=== PATIENT | female | born 1985 | race Caucasian/White ===

== ENCOUNTER 2024-10-15 08:25 | Inpatient (IN) | payer BC, MEDICAID, OTHER ==
[2024-10-15 11:52] LABS: Amphetamine Screen,Urine Not Detected (NotDetected); Barbiturate Screen,Urine Not Detected (NotDetected); Benzodiazepines Screen,Urine Not Detected (NotDetected); Cocaine Screen,Urine Not Detected (NotDetected); Methadone Screen, Urine Not Detected (NotDetected); Opiate Screen,Urine Not Detected (NotDetected); Oxycodone Screen, Urine Not Detected (NotDetected); Phencyclidine Screen,Urine Not Detected (NotDetected); Tricyclic Antidepressant,Urine Not Detected (NotDetected); Urn Cannabinoid Scrn Detected (NotDetected)
[2024-10-15 12:14] LABS: Influenza A Not Detected (Not Detectd); Influenza B Not Detected (Not Detectd); RSV Not Detected (Not Detectd)
[2024-10-15] MEDS: LORazepam 2 MG/ML INJ IM STA (12:37)
[2024-10-15] MEDS: ZIPRASIDONE 20 MG VIAL IM STA (12:38)
[2024-10-15] MEDS ORDERED: MAGNESIUM HYDROXIDE 2,400 MG/30 ML CUP PO PRN (13:43)
[2024-10-15] MEDS ORDERED: MAG HYDROX/AL HYDROX/SIMETH 355 ML BOTTLE PO PRN (13:43)
[2024-10-15] MEDS ORDERED: HALOPERIDOL LACTATE 5 MG/ML 1 ML VIAL IM PRN (13:43)
[2024-10-15] MEDS ORDERED: LORazepam 2 MG/ML INJ IM PRN (13:43)
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
[2024-10-15] MEDS: IBUPROFEN 600 MG TAB PO PRN (21:15)
[2024-10-15] MEDS: LORazepam 1 MG TAB PO PRN (21:42)
[2024-10-16] MEDS: ACETAMINOPHEN TAB 325 MG TAB PO PRN
[2024-10-16] MEDS: haloperidoL 5 MG TAB PO PRN (01:45)
[2024-10-16 03:45] LABS: Appearance,Urine Clear (Clear); Bacteria,Urine Many /hpf; Bilirubin,Urine Negative (Negative); Blood,Urine Negative (Negative); Color,Urine Colorless; Glucose,Urine (UA) Negative (Negative); Ketones,Urine Negative (Negative); Leukocyte Esterase,Urine Large (Negative); Nitrite,Urine Negative (Negative); PH, Urine 6.5 (5.0-8.0); Protein,Urine Negative (Negative); RBC,Urine 1 /hpf (0-5); Specific Gravity,Urine 1.004 (1.001-1.035); Squamous Epithelial Cell,Urine <1 /hpf (0-4); Urobilinogen,Urine <2.0 mg/dL (<2.0); WBC,Urine 27 /hpf (0-5)
[2024-10-16] MEDS: IBUPROFEN 800 MG TAB PO PRN (04:28)
--- NOTE | 2024-10-16 07:18 | XR ---
EXAMINATION TYPE: XR hand complete RT DATE OF EXAM: 10/15/2024 10:11 PM INDICATION: Patient age:Female; 39 years old; Reason for study: pain; PHH. pain COMPARISON: None TECHNIQUE: Frontal, lateral and oblique views of the right hand were obtained. FINDINGS: Normal alignment of the visualized joints. No acute osseous pathology is identified. No e vidence of soft tissue swelling. No radiopaque foreign body. IMPRESSION: No acute osseous pathology. [facility], , 10/16/2024 7:16 AM
[2024-10-16] MEDS: NICOTINE 14MG/24HR PATCH TRANSDERM SCH (09:30)
[2024-10-16 09:56] LABS: Basophils # (A) 0.07 10*3/uL (0.00-0.10); Basophils % (A) 0.8 %; Eosinophils # (A) 0.09 10*3/uL (0.04-0.35); HCT 35.9 % (37.2-46.3); HGB 12.3 g/dL (12.0-15.0); Lymphocytes # (A) 2.28 10*3/uL (0.90-5.00); Lymphocytes % (A) 25.8 %; MCH 31.5 pg (27.0-32.0); MCHC 34.3 g/dL (32.0-37.0); MCV 92.1 fL (80.0-97.0); Mean Platelet Volume 9.1 fL (9.5-12.2); Monocytes # (A) 0.82 10*3/uL (0.20-1.00); Monocytes % (A) 9.3 %; Neutrophils # (A) 5.57 10*3/uL (1.80-7.70); Neutrophils % (A) 62.9 %; Platelet Count 414 10*3/uL (140-440); RDW 13.1 % (11.5-14.5); WBC 8.85 10*3/uL (4.50-10.00)
[2024-10-16 10:10] LABS: ALT 30 U/L (4-34); AST 49 U/L (14-36); African American GFR (CKD) >90 (>60 ml/min/1.73 sqM); Alkaline Phosphatase 42 U/L (38-126); Anion Gap 7 mmol/L; Blood Urea Nitrogen 4 mg/dL (7-17); Calcium 9.5 mg/dL (8.4-10.2); Carbon Dioxide 29 mmol/L (22-30); Chloride 102 mmol/L (98-107); Glucose 82 mg/dL (74-99); Non-African American GFR(CKD) >90 (>60 ml/min/1.73 sqM); Potassium 3.7 mmol/L (3.5-5.1); Sodium 138 mmol/L (137-145); Total Bilirubin 0.7 mg/dL (0.2-1.3); Total Protein 6.4 g/dL (6.3-8.2)
[2024-10-16 15:20] LABS: Chol/HDL Ratio 2.15 Ratio; LDL Cholesterol,Calculated 76.5 mg/dL (0.0-131.0); VLDL Calculation 14.46 mg/dL (5.00-40.00)
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
[2024-10-16] MEDS: PALIPERIDONE 3 MG TAB.ER.24 PO SCH (21:04)
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
[2024-10-17] MEDS: NICOTINE GUM (POLACRILEX) 2 MG GUM BUCCAL PRN (09:44)
[2024-10-17] MEDS: NICOTINE 21MG/24HR PATCH TRANSDERM SCH (14:24)
--- NOTE | 2024-10-17 15:22 | P.PN ---
Progress Note - Text Progress Note Date: 10/17/24 Dictation was produced using [employer] dictation software. Please excuse any grammatical, word or spelling errors. Interval history: Patient was seen in the hallway and was directable and agreeable to speak with the inspector automatic typewriter in the office for psychiatric follow-up. The patient states that she is feeling good, states that she slept for few hours, and she had a thigh pain, and was asking for pain medication. States that no one came to see her. States that she does not feel any depression or anxiety, however reported that she is feeling anxious about being in the hospital. She denied any current SI/HI or self harm, she denied any current AVH. Reported that she is feeling safe in the unit, and is getting along well with everyone. She states that she took her medication and she denied any side effects. She states that her has been calling her and she reported that he want her to be back home. Pt continues to have labile mood, and she was crying and emotional at times. She states that she was on [place] in the past around 2017 and she does not want to be back on it. She states that she used to see someone at [facility] for medication however she could not remember. Per report the patient did not sleep last night, was up in the halls with peers making various requests at the nursing station. The patient was making various requests including " I want to go to the [facility], to the ER" after seeing the medical doctor. MENTAL STATUS EXAM: General Appearance: Patient appears to be stated age is alert, directable, and attempts to cooperate. Patient appears to have fair hygiene and grooming. Behavior: Patient is seated without any agitated behavior, patient was emoti onal, cried at time however she is labile and she was laughing at other times Speech: Patient's speech is fluent and nonpressured. Mood/Affect: Patient reports their mood is "good", affect is labile, congruent and constricted. Suicidality/Homicidality: Patient denies having any homicidal ideation intent or plan. Denies any suicidal ideations intent or plan Perceptions: Patient denies any visual hallucinations and denies any auditory hallucinations Though content/process: The patient thought process is illogical and nonsensical, she could not remember or tell why she was acting bizarre while in the street, lacks insight into her mental illness. Memory and concentration: AOX3, grossly intact for the purposes of this session. Judgment and insight: poor IMPRESSIONS: Psychosis, unspecified Rule out bipolar 1 disorder, current episode manic Cannabis use disorder PLAN: -Continue with current diagnosis. Patient continues to meet criteria for inpatient psychiatric admission for symptom stabilization and safety. -Patient is admitted under involuntary status to MHU for stabilization of psychiatric symptoms and safety. Patient has not signed adult voluntary form, but she was able to sign medication consent and is placed in patient's chart, reported she may consider taking medication. A second certification was completed and along with petition will be filed for court. -Medications : Continue Invega 3 mg p.o. at bedtime May consider lithium once we clarify her past medication (patient refused to start lithium and reported that she tried it in the past and it was not helpful) collateral will be helpful Will continue to hold paroxetine since patient has not been taking it for a week and will monitor for discontinuation symptoms -Ativan and Haldol PRN for agitation/aggression -Patient was counselled on substance abuse and desired to cut back on use -Patient was informed of the risks, benefits and side effects of the medication and patient verbally consented to taking the medications. Patient signed med consent form and was placed in chart. -Internal Medicine consult to perform medical evaluation and physical. -NRT - nicotine patch -SW on board for discharge planning. Encourage patient to participate in groups to work on coping skills. Will await deferral and court date. Collateral will be helpful.
[2024-10-18] MEDS ORDERED: NICOTINE GUM (POLACRILEX) 2 MG GUM BUCCAL PRN (08:48)
[2024-10-18] MEDS: LIDOCAINE 4% CREAM 5 GM TUBE TOPICAL PRN (10:49)
[2024-10-18] MEDS: LITHIUM CARBONATE ER 450 MG TABLET.ER PO SCH (10:49)
[2024-10-18] MEDS: NICOTINE GUM (POLACRILEX) 2 MG GUM BUCCAL PRN (10:51)
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
--- NOTE | 2024-10-18 11:02 | XR ---
EXAMINATION TYPE: XR hand complete LT DATE OF EXAM: 10/18/2024 10:40 AM COMPARISON: None CLINICAL INDICATION: Female, 39 years old with history of hand/finger trauma; PHH, thumb pain TECHNIQUE: 3 views FINDINGS: No acute fracture, subluxation, dislocation. No retained radiopaque foreign body is seen. IMPRESSION: No acute osseous abnormality seen. [facility], Workstation: [facility], 10/18/2024 11:00 AM
[2024-10-19] MEDS: PALIPERIDONE 6 MG TAB.ER.24 PO SCH (08:28)
--- NOTE | 2024-10-19 11:23 | P.PN ---
Progress Note - Text Progress Note Date: 10/19/24 Interval History: Patient was seen today for psychiatric follow up. she had on much for make up today. claims that she is feeling calmer today and does not know what changed. she claims that she is happy that she is now on lithium. continues to be somewhat intrusive with va underwriter, required prns yesterday especially for sleep. states that her anxiety. continues to have racing thoughts, flight of ideas, improving mildly. Was fairly talkative intrusive at times. She is not sleeping well at nighttime, asked to be on trazodone for tonight. We spoke about the court process. She is denying any suicidal or homicidal ideations intent or plan denying any auditory or visual hallucinations. MENTAL STATUS EXAM: General Appearance: Patient appears to be stated age is alert, directable, and attempts to cooperate. Patient appears to have fair hygiene and grooming. Behavior: Patient is seated without any agitated behavior, continues to be intrusive today Speech: Patient's speech is fluent and nonpressured. Mood/Affect: Patient reports their mood is "better", affect is labile, congruent and labile Suicidality/Homicidality: Patient denies having any homicidal ideation intent or plan. Denies any suicidal ideations intent or plan Perceptions: Patient denies any visual hallucinations and denies any auditory hallucinations Though content/process: The patient thought process is more logical today, rambling. poor insight into her need for hospitalization, focusing on discharge Memory and concentration: AOX3, grossly intact for the purposes of this session. Judgment and insight: poor, improving mildly IMPRESSIONS: Psychosis, unspecified Rule out bipolar 1 disorder, current episode manic Cannabis use disorder PLAN: -Patient is admitted under involuntary status to MHU for stabilization of psychiatric symptoms and safety. Patient has no signed adult voluntary form, but she was able to sign medication consent and is placed in patient's chart, reported she may consider taking medication. -Medications : Invega 6 mg p.o. at bedtime for mood stabilization/psychosis increase lithium 300 mg bid for mood stabilization added trazodone 50 mg qhs for insomnia -Ativan and Haldol PRN for agitation/aggression -NRT - nicotine patch -SW on board for discharge planning. Encourage patient to participate in groups to work on coping skills. Will await deferral and court date. va underwriter completed third certificate on 10/18.
[2024-10-19] MEDS: traZODone HCL 50 MG TAB PO SCH (21:45)
[2024-10-19] MEDS: LITHIUM CARBONATE 300 MG CAP PO SCH (21:45)
--- NOTE | 2024-10-20 10:27 | P.PN ---
Progress Note - Text Progress Note Date: 10/20/24 Interval History: Patient was seen today for psychiatric follow up. she was seen attending group and interacting with other patients on the unit. she appears to be brighter in her affect today and claims that she feels "good today". she denies any anxiety. states that she is still confused as to when she will be able to speak to her transactional attorney and states that she wants to sign a deferral and agreeable to continue on with treatment. appears to be more pleasant today and less intrusive with others. She is not sleeping well at nighttime, asked for an increase in trazodone. and also asked have her ativan d/c and changed to vistaril prn for anxiety. asked to be on trazodone for tonight. We spoke about the court process. She is denying any suicidal or homicidal ideations intent or plan denying any auditory or visual hallucinations. MENTAL STATUS EXAM: General Appearance: Patient appears to be stated age is alert, directable, and attempts to cooperate. Patient appears to have fair hygiene and grooming. Behavior: Patient is seated without any agitated behavior, less intrusive today. more pleasant Speech: Patient's speech is fluent and nonpressured. Mood/Affect: Patient reports their mood is "good", affect is congruent. Suicidality/Homicidality: Patient denies having any homicidal ideation intent or plan. Denies any suicidal ideations intent or plan Perceptions: Patient denies any visual hallucinations and denies any auditory hallucinations Though content/process: The patient thought process is more logical today, rambling. no paranoia/delusions. Memory and concentration: AOX3, grossly intact for the purposes of this session. Judgment and insight: poor, improving mildly IMPRESSIONS: Psychosis, unspecified Rule out bipolar 1 disorder, current episode manic Cannabis use disorder PLAN: -Patient is admitted under involuntary status to MHU for stabilization of psychiatric symptoms and safety. Patient has no signed adult voluntary form, but she was able to sign medication consent and is placed in patient's chart, reported she may consider taking medication. -Medications : Invega 6 mg p.o. at bedtime for mood stabilization/psychosis lithium 300 mg bid for mood stabilization increase trazodone 100 mg qhs for insomnia/mood -Ativan and Haldol PRN for agitation/aggression -NRT - nicotine patch -SW on board for discharge planning. Encourage patient to participate in groups to work on coping skills. Will await deferral TBD and court date set for 10/26. customs entry writer completed third certificate on 10/18. if patient is able to defer then will likely consider d/c friday
[2024-10-20] MEDS: traZODone HCL 100 MG TAB PO SCH (21:31)
[2024-10-21] MEDS: hydrOXYzine pamoate 25 MG CAP PO PRN (00:08)
--- NOTE | 2024-10-21 11:36 | P.PN ---
Progress Note - Text Progress Note Date: 10/21/24 Interval History: Patient was seen today for psychiatric follow up. Patient was wandering the h allways, attending group earlier. She appeared to have improvement in her insight today, spoke more about the issues at home that she is having with her and her daughter. She claims that she is going to go to counseling with them for family therapy. Claims that she has to sort out quite a bit of legal stuff with what happened recently before coming to the hospital. Claims that she feels better today, claims that she will be meeting with her estate attorney later on today and helps to sign the deferral. She did appear to be more future oriented today. Claims that her mood and anxiety been improving. She claims that she would rather be on the long-acting injection rather than taking more medications, she was agreeable to try use consuelo today. She states that she does not like the trazodone and would rather try a different medication, she opted to try doxepin for tonight. Also claims that she wants to try melatonin. States that she has been eating well going to groups, hygiene and grooming improving. She is denying any suicidal or homicidal ideations intent or plan denying any auditory or visual hallucinations. MENTAL STATUS EXAM: General Appearance: Patient appears to be stated age is alert, directable, and attempts to cooperate. Patient appears to have fair hygiene and grooming. Behavior: Patient is seated without any agitated behavior, more pleasant and more cooperative today Speech: Patient's speech is fluent and nonpressured. Mood/Affect: Patient reports their mood is "better", affect is congruent. Suicidality/Homicidality: Patient denies having any homicidal ideation intent or plan. Denies any suicidal ideations intent or plan Perceptions: Patient denies any visual hallucinations and denies any auditory hallucinations Though content/process: The patient thought process is more logical today, rambling. no paranoia/delusions. More future oriented today. Memory and concentration: AOX3, grossly intact for the purposes of this session. Judgment and insight: improving mildly IMPRESSIONS: Psychosis, unspecified Rule out bipolar 1 disorder, current episode manic Cannabis use disorder PLAN: -Patient is admitted under involuntary status to MHU for stabilization of psychiatric symptoms and safety. Patient has no signed adult voluntary form, but she was able to sign medication consent and is placed in patient's chart, reported she may consider taking medication. -Medications : Discontinue Invega 6 mg p.o. as patient is willing to be transitioned onto Uzedy will give 100 mg SQ today for mood stabilization/psychosis, qmonthly, next dose will be due on 11/18 lithium 300 mg bid for mood stabilization, check lithium level tomorrow am. Discontinue trazodone due to patient preference, will add doxepin 10 mg nightly for insomnia/mood, also add melatonin 10 mg nightly for sleep -Ativan and Haldol PRN for agitation/aggression -NRT - nicotine patch - on board for discharge planning. Encourage patient to participate in groups to work on coping skills. Will await deferral TBD and court date set for 10/26. if patient is able to defer then will likely d/c friday back home
[2024-10-21] MEDS: risperiDONE 100 MG/0.28 ML SYR (NO COST) SQ SCH (14:54)
[2024-10-21] MEDS: MELATONIN 5 MG TABLET PO SCH (20:38)
[2024-10-21] MEDS: DOXEPIN 10 MG CAP PO SCH (20:38)
[2024-10-22 08:58] VITALS: BP 97/63; PULSE 93; RESP 16; TEMP 98.4
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
== END 2024-10-22 15:20 | disposition home or self-care (01) | DRG 885 ==
LOC: EC 08:25 → 3MHU 13:13
PROVIDERS: ADMIT Psychiatry & Neurology Psychiatry; ATTEND Psychiatry & Neurology Psychiatry
DX: F29 Unspecified psychosis not due to a substance or known physiological condition (principal); T76.11XA Adult physical abuse, suspected, initial encounter; F12.10 Cannabis abuse, uncomplicated; F17.290 Nicotine dependence, other tobacco product, uncomplicated; G47.00 Insomnia, unspecified; F41.9 Anxiety disorder, unspecified; S40.022A Contusion of left upper arm, initial encounter; S70.12XA Contusion of left thigh, initial encounter; Z63.0 Problems in relationship with spouse or partner; Z90.710 Acquired absence of both cervix and uterus; Z79.890 Hormone replacement therapy; Z81.8 Family history of other mental and behavioral disorders; Y07.010 Husband, current, perpetrator of maltreatment and neglect; Z79.899 Other long term (current) drug therapy; Z62.810 Personal history of physical and sexual abuse in childhood
CPT/HCPCS: 80053; 80061; 80178; 80306; 81001; 81025; 83036; 84443; 85025; 85379; 87636